=== PATIENT | male | born 1965 | race Caucasian/White ===

== ENCOUNTER 2016-05-24 14:05 | Emergency (ER) | payer MEDICAID ==
[2016-05-24 14:32] VITALS: BP 169/90; PULSE 83; RESP 17; TEMP 98.5
--- NOTE | 2016-05-24 15:07 | ED ---
Lower Extremity Injury HPI - General Chief Complaint: Extremity Injury, Lower Stated Complaint: Fall Time Seen by Provider: 05/24/16 14:41 Source: patient, RN notes reviewed, old records reviewed Mode of arrival: wheelchair Limitations: no limitations - History of Present Illness Initial Comments: Patient is a 51-year-old male with chief complaint of left knee pain after falling on the ice. Patient reports that he's had multiple left knee surgeries including arthroscopic surgeries and a total exhortatory surgery to his knee. Patient reports that after he fell he is noticed increased swelling. He reports that he's had chronic numbness over his knee and makes that good as his pain is somewhat diminished however he does have a poor perception of the exact location of pain. Patient reports that he has previously seen Dr. Chavez the orthopedic physician however he is unable to see him at this time. Patient reports no hip or ankle pain. He reports decreased range of motion irritation over the knee. - Related Data Previous Rx's Medication Instructions Recorded HYDROcodone/APAP 10-325MG [[place] 1 tab PO Q6H PRN #15 tab 05/24/16 10-325] Ibuprofen [Motrin] 800 mg PO Q6HR PRN #15 tab 05/24/16 Allergies Allergy/AdvReac Type Severity Reaction Status Date / Time azithromycin [From Zithromax] Allergy Mild Unknown Verified 05/24/16 14:27 Review of Systems ROS Statement: Those systems with pertinent positive or pertinent negative responses have been documented in the HPI. ROS Other: All systems not noted in ROS Statement are negative. Past Medical History Past Medical History: No Reported History History of Any Multi-Drug Resistant Organisms: None Reported Additional Past Surgical History / Comment(s): knee surgery Past Psychological History: No Psychological Hx Reported Smoking Status: Never smoker Past Alcohol Use History: Occasional Past Drug Use History: None Reported General Exam Limitations: no limitations General appearance: alert, in no apparent distress Head exam: Present: atraumatic, normocephalic, normal inspection Eye exam: Present: normal appearance, PERRL, EOMI. Absent: scleral icterus, conjunctival injection, periorbital swelling ENT exam: Present: normal exam, mucous membranes moist Neck exam: Present: normal inspection. Absent: tenderness, meningismus, lymphadenopathy Respiratory exam: Present: normal lung sounds bilaterally. Absent: respiratory distress, wheezes, rales, rhonchi, stridor Cardiovascular Exam: Present: regular rate, normal rhythm, normal heart sounds. Absent: systolic murmur, diastolic murmur, rubs, gallop, clicks GI/Abdominal exam: Present: soft, normal bowel sounds. Absent: distended, tenderness, guarding, rebound, rigid Left Hip exam: Present: normal inspection, full ROM Upper Leg exam: Present: normal inspection, full ROM Knee exam: Present: tenderness, swelling (significant swelling over the knee. Patient reports some tenderness over the lateral aspect of the knee.), effusion. Absent: normal inspection, full ROM, abrasion, laceration, ecchymosis , deformity, crepitus, dislocation Lower Leg exam: Present: normal inspection, full ROM Ankle exam: Present: normal inspection, full ROM Foot/Toe exam: Present: normal inspection, full ROM Neurovascular tendon exam: Present: no vascular compromise Gait: observed and normal Back exam: Present: normal inspection Course Vital Signs 05/24/16 14:27 Temperature 98.5 F Pulse Rate 83 Respiratory 17 Rate Blood Pressure 169/90 O2 Sat by Pulse 99 Oximetry Procedures - Orthopedic Splinting/Casting Injury #1 Side: left Lower Extremity Injury Location: knee Lower Extremity Immobilizer: knee immobilizer Other Orthopedic Equipment: crutches Medical Decision Making - Medical Decision Making Patient is a 51 year old male with left knee pain after falling on the ice. PAtietn has significant swelling. Patient xray shows tibial platue fracture and femoral condyle fracture. Patient reports that this finding is not new. Given patients significant swelling and Xray results patiient placed in knee immobilizer and advised to follow up with orthopedics as soon as possible. Patient advised to be non weight bearing. Patient advised to take motrin, and pain medication as prescribed. Patient understands treatment plan and will comply. - Radiology Data There is evidence of a lateral tibial plateau fracture without depression. There is a suspected femoral condyle or fracture. Disposition Clinical Impression: Closed fracture of lateral portion of left tibial plateau, Femoral condyle fracture Disposition: HOME SELF-CARE Instructions: Leg Fracture (ED) Additional Instructions: Patient advised to remain in splint as much as possible. Only take off to change into sweatpants. Patient advised to bear no weight over the leg. Only use crutches to ambulate. Return to the EC if any alarming signs or symptoms occur. Follow-up with orthopedic physician tomorrow. Prescriptions: HYDROcodone/APAP 10-325MG [[place] 10-325] 1 tab PO Q6H PRN #15 tab PRN Reason: Pain Ibuprofen [Motrin] 800 mg PO Q6HR PRN #15 tab PRN Reason: Pain Referrals: Tanner Coats DO [Primary Care Provider] - 1-2 days Tanner Harper DO [Doctor of Osteopathic Medicine] - 1-2 days Time of Disposition: 15:42
--- NOTE | 2016-05-24 15:19 | XR ---
EXAMINATION TYPE: XR knee complete LT DATE OF EXAM: 05/24/2016 3:10 PM COMPARISON: 11/29/2015 HISTORY: Fall on ice TECHNIQUE: 3 views left knee FINDINGS: There is a nondisplaced fracture within the distal femoral condyle. This extends towards th e midline. A subtle nondisplaced lateral tibial plateau fracture also appears to be present. This wou ld communicate with the articular surface. CT may be useful for closer evaluation. There is a large j oint effusion present. IMPRESSION: 1. Lateral tibial plateau fracture without depression. 2. Suspected femoral condylar fracture.
== END 2016-05-24 15:59 | disposition home or self-care (01) ==
LOC: EC 14:05
DX: S82.142A Displaced bicondylar fracture of left tibia, initial encounter for closed fracture (principal); S72.412A Displaced unspecified condyle fracture of lower end of left femur, initial encounter for closed fracture; W00.0XXA Fall on same level due to ice and snow, initial encounter; Z88.1 Allergy status to other antibiotic agents
CPT/HCPCS: 73562; 99284; L1830

== ENCOUNTER → 2016-06-01 | Outpatient (CLI) | payer MEDICAID ==
--- NOTE | 2016-06-01 10:14 | MR ---
EXAMINATION TYPE: MR knee LT wo con DATE OF EXAM: 06/01/2016 8:12 AM COMPARISON: December 15, 2015 HISTORY: closed fx of lt tibial plateau TECHNIQUE: Multiplanar, multisequence imaging of the left knee is performed without IV contrast. FINDINGS: MEDIAL MENISCUS: Persistent tear posterior horn medial meniscus. Partial meniscectomy change not excl uded. LATERAL MENISCUS: Obliquely oriented tear posterior horn medial meniscus. CRUCIATE LIGAMENTS: Complete tear of the ACL is again noted nonacute in nature. PCL is intact. COLLATERAL LIGAMENTS: Limited evaluation of the collateral ligaments given patient motion and resulta nt artifact. EXTENSOR MECHANISM: Visualized quadriceps and patellar tendons are intact. EFFUSION: There is evidence of-like bone hemarthrosis. POPLITEAL CYST: No popliteal/macias cyst. TRICOMPARTMENT SPACES: Mild tricompartment degenerative space narrowing is identified. BONE MARROW SIGNAL: Diffuse abnormal signal involving the distal left femoral condyles lateral greate r than medial. Comminuted fracture involving the distal femoral condyle with intra-articular extensio n. Minimal displacement noted. Chronic subchondral impaction fracture lateral compartment tibial plat eau appears improved relative to prior examination. OTHER: No additional significant abnormality is appreciated. IMPRESSION: 1. Comminuted fractures involving the distal femoral condyles with intra-articular extension and mini mal displacement. 2. Associated hemarthrosis. 3. No evidence for acute tibial plateau fracture. Chronic subchondral impaction injury lateral compar tment tibial plateau. 4. Chronic complete rupture of the ACL. 5. Meniscal tears as discussed.
== END | disposition home or self-care (01) ==
LOC: RADMRIMAIN 07:04
PROVIDERS: ATTEND Family Medicine
DX: S72.142A Displaced intertrochanteric fracture of left femur, initial encounter for closed fracture (principal); S83.232A Complex tear of medial meniscus, current injury, left knee, initial encounter; S83.512A Sprain of anterior cruciate ligament of left knee, initial encounter

== ENCOUNTER → 2018-08-03 | Outpatient (CLI) | payer MEDICAID ==
[2018-08-06 11:58] LABS: Avocado Class CLASS 0; Banana IgE Class CLASS 0; Beef IgE <0.35 kU/L (<0.35); Beef IgE Class CLASS 0; Blueberry IgE <0.35 kU/L (<0.35); Blueberry IgE Class CLASS 0; Chicken IgE Class CLASS 0; Cow's Milk IgE Class CLASS 0; Egg White IgE <0.35 kU/L (<0.35); Hazelnut IgE <0.35 kU/L (<0.35); Hazelnut IgE Class CLASS 0; Kiwi IgE <0.35 kU/L (<0.35); Latex IgE Class CLASS 0; Peanut IgE <0.35 kU/L (<0.35); Pork IgE Class CLASS 0; Potato IgE <0.35 kU/L (<0.35); Potato IgE Class CLASS 0; Soybean IgE <0.35 kU/L (<0.35); Yeast Bakers/Brew IgE <0.35 kU/L (<0.35)
== END | disposition home or self-care (01) ==
LOC: LABWHC1 09:27
PROVIDERS: ATTEND Otolaryngology
DX: L50.0 Allergic urticaria (principal); L30.9 Dermatitis, unspecified
CPT/HCPCS: 36415; 86001; 86003

== ENCOUNTER → 2018-09-06 | Outpatient (CLI) | payer MEDICAID ==
[~2018-09-06] MED LIST: REGADENOSON 0.4 MG/5 ML SYRINGE IV ONE
--- NOTE | 2018-09-06 10:31 | NM ---
EXAMINATION TYPE: NM stress lexiscan cardiolite DATE OF EXAM: 09/06/2018 COMPARISON: 01/14/2014 HISTORY: Chest pain TECHNIQUE: After the intravenous administration of 9.8 mCi Tc 99m Sestamibi - Cardiolite resting SPE CT images acquired 45 minutes post injection. The patient received 0.4mg Lexiscan, 25.7 mCi Tc 99m Sestamibi - Stress images obtained [address] injection FINDINGS: Review of stress and rest SPECT images demonstrates small focal area of stress-induced ischemia invol ving the anteroapical myocardium. Gated analysis shows normal wall motion with an estimated left pedro pablo tricular ejection fraction of 60 %. IMPRESSION: 1. Findings suspicious for small area of stress-induced reversible ischemia anteroapical myocardium.. A [place] level critical message alert has been initiated for Tanner Coats DO via the [employer] Critical Results System on 09/06/2018 10:29 AM. This message alert has been sent to Tanner parada DO via the preferences provided by the clinician for the receipt of Radiology Critical Findings . Message ID [id number].
--- NOTE | 2018-09-07 14:06 | EST ---
EXERCISE STRESS DATE OF SERVICE: 09/06/2018 AGE: 53 SEX: Male HT: 70" WT: 284 pounds PROTOCOL: Lexiscan Cardiolite STAGE: DURATION OF EXERCISE: HEART RATE REST: 61 BLOOD PRESSURE REST: 140/82 MAXIMUM HEART RATE ACHIEVED: 81 MAXIMUM BLOOD PRESSURE: 147/81 85% MPHR: 100% MPHR: METS: INDICATIONS: Chest pain. CLINICAL INFORMATION: A Lexiscan nuclear study was performed. Peak heart rate of 81 was achieved. Maximum blood pressure of 147/81 mmHg was noted. Resting EKG shows normal sinus rhythm with normal MA interval and QRS duration and normal ST-T waves. No ST-segment depression suggestive of ischemia was noted during Lexiscan injection. The results of the nuclear study will be reported by the radiologist. NATALIA / SUNDEEP: [id number] /
== END | disposition home or self-care (01) ==
LOC: RADNMMAIN 07:45
PROVIDERS: ATTEND Family Medicine
DX: R07.89 Other chest pain (principal)
CPT/HCPCS: 93017; 78452; A9500; J2785

== ENCOUNTER → 2018-09-25 | Outpatient (CLI) | payer MEDICAID ==
[~2018-09-25] MED LIST changes: +ATROPINE SULFATE 0.1 MG/ML 10ML SYRINGE ONE; +DOBUTamine DRIP for NUC MED 500 MG in DEXTROSE/WATER 1 250ML.BAG IV ONE; +METOPROLOL TARTRATE 5 MG/5 ML VIAL IVP ONE; -REGADENOSON 0.4 MG/5 ML SYRINGE IV ONE
--- NOTE | 2018-09-25 11:44 | ECHOS ---
STRESS ECHOCARDIOGRAM DATE OF SERVICE: 09/25/2018 INDICATIONS: Chest pain. MEDICATIONS: Claritin, Bumex. BASELINE HEART RATE: 62 BASELINE BLOOD PRESSURE: 156/84 MAXIMUM HEART RATE: 147 MAXIMUM BLOOD PRESSURE: 187/58 85% MPHR: 143 100% MPHR: 168 METS: MAXIMUM STAGE REACHED: TOTAL EXERCISE TIME: CLINICAL INFORMATION: STRESS DATA: Pretesting physical examination showed a heart rate of 62, pressure is 156/84 mmHg. Baseline EKG showed sinus mechanism. Dobutamine infusion at a dose of 10 mcg/kg per minute was initiated and increased to 40 mcg/kg per minute per protocol. Max heart rate was 147 beats per minute which is about 90% of maximum predicted heart rate. Maximum blood pressure was 187/58 mmHg. Clinically the patient did not have any symptoms of chest pain or discomfort and the EKG did not show any significant ST or T- wave abnormalities concerning for ischemia. ECHOCARDIOGRAM IMAGES: On echocardiogram images from parasternal long axis view, parasternal short axis view, apical 4 chamber and apical 2 chamber view were obtained as the baseline images, at low dose dobutamine infusion, at peak heart rate, as well as on recovery. The echocardiogram images did show good augmentation in the left ventricular systolic function without any obvious wall motion abnormalities concerning for ischemia. CONCLUSION: 1. Normal EKG in response to dobutamine. 2. Normal echocardiogram in response to dobutamine. 3. Essentially normal dobutamine stress echocardiogram for the patient. MMODL / IJN: [id number] /
== END | disposition home or self-care (01) ==
LOC: RADNMMAIN 09:31
PROVIDERS: ATTEND Internal Medicine Cardiovascular Disease
DX: R07.2 Precordial pain (principal); R94.30 Abnormal result of cardiovascular function study, unspecified
CPT/HCPCS: 93351; J1250; J0461; Q9950

== ENCOUNTER → 2018-11-06 | Outpatient (CLI) | payer MEDICAID ==
--- NOTE | 2018-11-07 11:29 | ECHOF ---
Referral Reason:R07.2 Precordial pain,R94.30 Abn Cardiac Function MEASUREMENTS -------- HEIGHT: 180.3 cm WEIGHT: 127.0 kg BP: RVIDd: 2.7 cm (< 3.3) IVSd: 1.4 cm (0.6 - 1.1) LVIDd: 4.1 cm (3.9 - 5.3) LVPWd: 1.5 cm (0.6 - 1.1) IVSs: 1.9 cm LVIDs: 2.1 cm LVPWs: 1.6 cm Ao Diam: 3.1 cm (2.0 - 3.7) AV Cusp: 2.2 cm (1.5 - 2.6) LA Diam: 3.2 cm (2.7 - 3.8) MV EXCURSION: 17.007 mm (> 18.000) MV EF SLOPE: 72 mm/s (70 - 150) EPSS: 0.5 cm MV E Cliff: 0.64 m/s MV DecT: 215 ms MV A Cliff: 0.71 m/s MV E/A Ratio: 0.91 RAP: 5.00 mmHg RVSP: 11.51 mmHg FINDINGS -------- Sinus rhythm. This was a technically difficult study with suboptimal views. The left ventricular size is normal. There is moderate concentric left ventricular hypertrophy. O verall left ventricular systolic function is normal with, an EF between 55 - 60 %. The right ventricle is normal in size. The left atrial size is normal. The right atrial size is normal. 5.0mg of Lumason was utilized for enhancement of images Interatrial and interventricular septum intact. The aortic valve is trileaflet and appears structurally normal. The mitral valve is normal. There is trace mitral regurgitation. The tricuspid valve appears structurally normal. Trace tricuspid regurgitation present. Right pedro pablo tricular systolic pressure is normal at < 35 mmHg. There is no pulmonic regurgitation present. The aortic root size is normal. IVC Not well visulized. There is no pericardial effusion. CONCLUSIONS -------- 1. Sinus rhythm. 2. This was a technically difficult study with suboptimal views. 3. The left ventricular size is normal. 4. There is moderate concentric left ventricular hypertrophy. 5. Overall left ventricular systolic function is normal with, an EF between 55 - 60 %. 6. The right ventricle is normal in size. 7. The left atrial size is normal. 8. The right atrial size is normal. 9. 5.0mg of Lumason was utilized for enhancement of images 10. Interatrial and interventricular septum intact. 11. The aortic valve is trileaflet and appears structurally normal. 12. The mitral valve is normal. 13. There is trace mitral regurgitation. 14. The tricuspid valve appears structurally normal. 15. Trace tricuspid regurgitation present. 16. Right ventricular systolic pressure is normal at < 35 mmHg. 17. There is no pulmonic regurgitation present. 18. The aortic root size is normal. 19. IVC Not well visulized. 20. There is no pericardial effusion. SOFTWARE LICENSING ANALYST: Rubi Jacobsen RDCS
== END | disposition home or self-care (01) ==
LOC: RADECHMAIN 11:15
PROVIDERS: ATTEND Internal Medicine Cardiovascular Disease
DX: I51.7 Cardiomegaly (principal)
CPT/HCPCS: 93306; Q9950

== ENCOUNTER → 2019-01-11 | Outpatient (CLI) | payer MEDICAID ==
--- NOTE | 2019-01-11 15:48 | XR ---
EXAMINATION TYPE: XR foot complete RT DATE OF EXAM: 01/11/2019 CLINICAL HISTORY: Great toe pain after kicking bed TECHNIQUE: Frontal, lateral, and oblique images of the right foot are obtained. COMPARISON: 09/18/2012 FINDINGS: There is no acute fracture/dislocation evident in the right foot. The joint spaces in the right foot appear within normal limits. Plantar calcaneal heel spur is present. The overlying soft tissue appears unremarkable. IMPRESSION: There is no acute fracture or dislocation in the right foot.
== END | disposition home or self-care (01) ==
LOC: RADXRYALE 15:31
PROVIDERS: ATTEND Family Medicine
DX: M25.571 Pain in right ankle and joints of right foot (principal)

== ENCOUNTER → 2019-05-30 | Outpatient (CLI) | payer MEDICAID ==
--- NOTE | 2019-05-30 11:25 | XR ---
EXAMINATION TYPE: XR chest 2V DATE OF EXAM: 05/30/2019 COMPARISON: 06/01/2015 HISTORY: Cough. Bronchitis for one week. TECHNIQUE: Frontal and lateral views of the chest are obtained. FINDINGS: There is no focal air space opacity, pleural effusion, or pneumothorax seen. Peribronchial cuffing is seen at the lung bases. The cardiac silhouette size is stable. The osseous structures a re intact. IMPRESSION: Peribronchial cuffing compatible with this patient's current bronchitis. No focal consol idation to suggest pneumonia.
== END | disposition home or self-care (01) ==
LOC: RADXRYALE 10:58
PROVIDERS: ATTEND Physician Assistant Medical
DX: R91.8 Other nonspecific abnormal finding of lung field (principal); R05 Cough
CPT/HCPCS: 71046

== ENCOUNTER → 2019-08-29 | Outpatient (CLI) | payer MEDICAID ==
--- NOTE | 2019-08-29 19:57 | CT ---
EXAMINATION TYPE: CT chest wo con DATE OF EXAM: 08/29/2019 COMPARISON: Chest x-ray dated 06/12/2019 HISTORY: Cough x 5 months and shortness of breath CT DLP: 664 mGycm. Automated Exposure Control for Dose Reduction was Utilized. TECHNIQUE: CT scan of the thorax is performed without IV contrast. FINDINGS: LUNGS: Azygos fissure is incidentally noted. There are scattered sub-3 mm pulmonary nodules. This is seen in the left lower lobe on series 4 image 40. Nodules are marked on lung algorithm series 4. No f ocal consolidation or pulmonary masses seen. Calcified granuloma along the medial aspect of the left lung base on series 4 image 58. There is no pleural effusion or pneumothorax seen. The tracheobronc hial tree is patent. MEDIASTINUM: Lack of IV contrast is noted to limit evaluation for mediastinal and especially hilar ad enopathy. There are no definitive greater than 1 cm hilar or mediastinal lymph nodes. No cardiomega ly or pericardial effusion is seen. Main pulmonary artery is upper limits of normal size measuring 3. 0 cm. Correlate for pulmonary arterial hypertension. OTHER: No fluid attenuated 1.2 cm hepatic cyst is marked on series 3 image 56 on the right hepatic l obe. Mild degree background hepatic steatosis. Liver is not completely visualized. Mild multilevel de generative change of the spine. IMPRESSION: 1. Few scattered sub-4 mm pulmonary nodules. Follow-up CT thorax is recommended in 12 months to ensur e stability. No focal consolidation, pleural effusion or pneumothorax. 2. Upper limits of normal size of the main pulmonary artery, which may clinically correlate with pulm onary arterial hypertension.
== END | disposition home or self-care (01) ==
LOC: RADCTMAIN 15:49
PROVIDERS: ATTEND Family Medicine
DX: R91.8 Other nonspecific abnormal finding of lung field (principal)
CPT/HCPCS: 71250

== ENCOUNTER → 2019-10-18 | Outpatient (CLI) | payer MEDICAID | END | disposition home or self-care (01) | LOC: LABWHC1 10:45 | PROVIDERS: ATTEND Internal Medicine Sleep Medicine | DX: Z11.59 Encounter for screening for other viral diseases (principal) ==

== ENCOUNTER → 2019-10-22 | Outpatient (CLI) | payer MEDICAID ==
[2019-10-22 09:37] LABS: Basophils # (A) 0.1 k/uL (0-0.2); Basophils % (A) 2 %; Eosinophils # (A) 0.6 k/uL (0-0.7); Eosinophils % (A) 9 %; Lymphocytes # (A) 1.3 k/uL (1.0-4.8); Lymphocytes % (A) 18 %; MCH 29.7 pg (25.0-35.0); MCHC 33.4 g/dL (31.0-37.0); Mean Platelet Volume 7.2; Monocytes # (A) 0.4 k/uL (0-1.0); Monocytes % (A) 6 %; Neutrophils # (A) 4.3 k/uL (1.3-7.7); Neutrophils % (A) 63 %; Platelet Count 248 k/uL (150-450); RBC 5.05 m/uL (4.30-5.90); RDW 13.1 % (11.5-15.5); WBC 6.9 k/uL (3.8-10.6)
[2019-10-23 14:07] LABS: Alt. alternata IgE Class CLASS 0; Alternaria alternata IgE <0.10 kU/L (<0.10); Asperg. fumagatus IgE <0.10 kU/L (<0.10); Asperg. fumagatus IgE Class CLASS 0; Candida albicans IgE Class CLASS 0; Clad herbarum IgE <0.10 kU/L (<0.10); Clad herbarum IgE Class CLASS 0; Latex IgE Class CLASS 0; Mucor racemosus IgE <0.10 kU/L (<0.10); Mucor racemosus IgE Class CLASS 0; Penicillium chrysogenum IgE <0.10 kU/L (<0.10); Penicillium chrysogenum IgE Cl CLASS 0
[2019-10-24 11:21] LABS: Alpha 1 Anti-Trypsin 152 mg/dL (90 - 200)
[2019-10-29 21:06] LABS: Alternaria Alternata IgG 4.7 mcg/mL (< 13.6); Aspergillus fumigatus IgG Not detected (Not detected); Aureobasidium pullulans IgG 3.7 mcg/mL (< 13.6); Cladosporium herbarium IgG 11.7 mcg/mL (< 14.7); Phoma ssp. IgG 5.1 mcg/mL (< 6.6); Saccaharomospora viridis Not detected (Not detected); Saccaharopoly. rectivirgula Not detected (Not detected)
== END | disposition home or self-care (01) ==
LOC: CPPFTMAIN 07:16
PROVIDERS: ATTEND Internal Medicine Sleep Medicine
DX: J45.909 Unspecified asthma, uncomplicated (principal)
CPT/HCPCS: 36415; 82103; 82104; 85025; 86001; 86003; 86606; 86609; 94060; 94726; 94729

== ENCOUNTER 2020-01-22 13:10 | Day surgery (SDC) | payer MEDICAID ==
[2020-01-21 12:26] VITALS: BMI 39.3
[~2020-01-22 13:10] MED LIST changes: -ATROPINE SULFATE 0.1 MG/ML 10ML SYRINGE ONE; -DOBUTamine DRIP for NUC MED 500 MG in DEXTROSE/WATER 1 250ML.BAG IV ONE; +LIDOCAINE 1% (10MG/ML) FOR IV START INTRADERMA PRN; -METOPROLOL TARTRATE 5 MG/5 ML VIAL IVP ONE
[2020-01-22 13:42] VITALS: RESP 16; TEMP 97.3
[2020-01-22] MEDS: LACTATED RINGERS 1,000 ML IV SCH ×2 (13:49→14:45)
[2020-01-22] MEDS ORDERED: LIDOCAINE 2% INJ 20 MG/ML INTRATRACH ONE (14:55)
[2020-01-22 15:40] VITALS: BP 140/84; PULSE 74
--- NOTE | 2020-01-22 15:46 | P.PCN ---
Date of Procedure: 01/22/20 Preoperative Diagnosis: Chronic recurrent bronchitis, chronic cough, shortness of breath, rule out infectious etiology Postoperative Diagnosis: As above Procedure(s) Performed: Bronchoscopy, bronchoalveolar lavage, bronchial biopsy left-sided Anesthesia: MAC Surgeon: rPo [place] Condition: stable Disposition: same day Indications for Procedure: As above Operative Findings: As below Description of Procedure: Patient prepared and draped in a usual fashion fiber thick bronchoscope was passed through the right knee disease, note is made of inferior turbinate hypertrophy involving mucosa tip of the Symone was has eventually choose a laryngeal area the vocal cords were inspected they were normal structure and function tip of the scope was passed into the trachea note is made of the diffuse erythematous was present more so on the left side compared right side, throughout the procedure patient was constantly coughing, scope was taken on the right side right upper lobe middle lobe and right lower lobe was inspected followed by inspection on the left side involving left upper and lower lobe along with subsegment slight more right heme and edema noted on the left side compared to right side BAL was performed from the left lobe and right lower lobe followed by multiple bronchial biopsy at left subcarinal level they were done randomly patient tolerated procedure well no complication noted
== END 2020-01-22 15:50 | disposition home or self-care (01) ==
LOC: ORWHC2ENDO 13:10
PROVIDERS: ATTEND Internal Medicine Sleep Medicine
DX: J42 Unspecified chronic bronchitis (principal); J81.1 Chronic pulmonary edema; J34.3 Hypertrophy of nasal turbinates; J45.50 Severe persistent asthma, uncomplicated; I10 Essential (primary) hypertension; E66.01 Morbid (severe) obesity due to excess calories; R91.1 Solitary pulmonary nodule; G47.30 Sleep apnea, unspecified; K21.9 Gastro-esophageal reflux disease without esophagitis; Z88.1 Allergy status to other antibiotic agents; Z68.39 Body mass index [BMI] 39.0-39.9, adult; Z79.51 Long term (current) use of inhaled steroids; Z79.899 Other long term (current) drug therapy; Z79.1 Long term (current) use of non-steroidal anti-inflammatories (NSAID)
CPT/HCPCS: 31625; 31624; 88108; 88305; 87252; 87070; 87205; 87116; 87102; 87206; J2001; 87496; 87498; 87502; 87529; 87634; 87798

== ENCOUNTER → 2020-07-22 | Outpatient (CLI) | payer MEDICAID ==
--- NOTE | 2020-07-22 10:14 | CT ---
EXAMINATION TYPE: CT facial bones wo con DATE OF EXAM: 07/22/2020 COMPARISON: None HISTORY: Acute recurrent sinusitis CT DLP: [address] of the paranasal sinuses was performed in the axial and coronal planes. Bone and soft tissue settings are submitted. The paranasal sinuses demonstrate normal aeration and development. Moderate mucosal thickening involving the ethmoid air cells. Mild mucosal thickening along the maxill jackie sinuses. Remaining sinuses are well-aerated. Bilateral ostiomeatal unit obstruction. The nasal septum is midline. No bony destructive changes are seen within the field of view. IMPRESSION: Chronic sinusitis as noted. Bilateral ostiomeatal unit obstruction.
== END | disposition home or self-care (01) ==
LOC: RADCTMAIN 09:26
PROVIDERS: ATTEND Family Medicine
DX: J32.9 Chronic sinusitis, unspecified (principal)
CPT/HCPCS: 70486

== ENCOUNTER → 2020-11-23 | Outpatient (CLI) | payer MEDICAID ==
--- NOTE | 2020-11-23 16:20 | XR ---
EXAMINATION TYPE: XR toes RT DATE OF EXAM: 11/23/2020 COMPARISON: NONE HISTORY: 55-year-old male and [id number], right toe pain, injury 3 weeks ago. TECHNIQUE: 2 views coned-down right great toe FINDINGS: There is mild degenerative spurring at the first MTP joint progress from 2019. Minimal degenerative s purring at the first IP joint also progressed from prior exam. There is a medial sided soft tissue sw elling noted. No acute fracture, subluxation, or dislocation. 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 Medial sided soft tissue swel ling. No acute osseous abnormality seen.
== END | disposition home or self-care (01) ==
LOC: RADXRYALE 15:12
PROVIDERS: ATTEND Physician Assistant Medical
DX: S99.921A Unspecified injury of right foot, initial encounter (principal); M19.071 Primary osteoarthritis, right ankle and foot

== ENCOUNTER 2021-09-29 07:54 | Day surgery (SDC) | payer MEDICAID ==
[2021-09-28 08:36] VITALS: BMI 40.1
[~2021-09-29 07:54] MED LIST changes: +DEXAMETHASONE SOD PHOSPHATE 4 MG/ML 1 ML VIAL IV ONE; +DEXAMETHASONE SOD PHOSPHATE 4 MG/ML 1 ML VIAL IV PRN; +FAMOTIDINE 20 MG/2 ML VIAL IV PRN; +LACTATED RINGERS 1,000 ML IV SCH; +MIDAZOLAM 2 MG/2 ML VIAL IV PRN; +ONDANSETRON 4 MG/2 ML VIAL IVP ONE; +ONDANSETRON 4 MG/2 ML VIAL IVP PRN; +ceFAZolin 3 GM in SODIUM CHLORIDE 0.9% 100 ML IVPB PRN
[2021-09-29] MEDS: OXYMETAZOLINE 0.05% NASL SPRAY 1 SPRAY BOTTLE EA NOSTRIL PRN ×5 (08:25→08:45)
[2021-09-29 08:57] LABS: Glucose,Whole Blood 109 mg/dL (75-99)
[2021-09-29] MEDS ORDERED: SUCCINYLCHOLINE CHLORIDE 100 MG/5 ML SYR IV ONE (09:51)
[2021-09-29] MEDS ORDERED: fentaNYL (PF) 50 MCG/ML 2 ML AMP ONE (09:51)
[2021-09-29] MEDS ORDERED: MIDAZOLAM 2 MG/2 ML VIAL ONE (09:51)
[2021-09-29] MEDS ORDERED: PROPOFOL 10 MG/ML 20 ML VIAL IV ONE (09:51)
[2021-09-29] MEDS ORDERED: LIDOCAINE 2% INJ 20 MG/ML (2 ML VIAL) ONE (09:51)
[2021-09-29] MEDS ORDERED: GLYCOPYRROLATE 0.2 MG/ML 2 ML VIAL ONE (09:51)
[2021-09-29] MEDS ORDERED: KETAMINE 10 MG/ML 20 ML VIAL ONE (09:51)
[2021-09-29] MEDS ORDERED: LIDOCAINE 1%-EPI 1:100,000 20 ML VIAL SUBMUCOSAL ONE ×3 (09:54→10:11)
[2021-09-29] MEDS ORDERED: BACITRACIN ZINC 500 UNIT/GM OINT 28.4 GM TUBE TOPICAL ONE ×2 (09:55→10:38)
--- NOTE | 2021-09-29 11:15 | P.OP ---
Date of Procedure: 09/29/21 Preoperative Diagnosis: Deviated nasal septum Inferior turbinate hypertrophy Chronic sinusitis Left nasal polyp Postoperative Diagnosis: Same Procedure(s) Performed: Septoplasty Outfracture and submucous resection of the inferior turbinates Bilateral endoscopic sinus surgery including bilateral maxillary antrostomy with removal of tissue from maxillary sinuses, bilateral anterior and posterior ethmoidectomy, left nasal polypectomy Anesthesia: SHANAA Surgeon: Jose Grajeda Estimated Blood Loss (ml): 10 Pathology: other (Nasal septal bone and cartilage and sinus contents) Condition: stable Disposition: PACU Indications for Procedure: This is a 56-year-old white male whose had difficulties with chronic nasal airway obstruction and congestion as well as recurrent and chronic sinusitis. He is also noted to have more so left-sided nasal airway obstruction with a large polyp in the left nasal cavity Operative Findings: Bilateral nasal septal deviation with inferior turbinate hypertrophy bilaterally also. Large nasal polyp on the left emanating from the middle meatus although somewhat smaller than previous due to his preoperative steroid use, mucosal thickening and small polyps in the maxillary sinuses bilaterally as well as the anterior and posterior ethmoid sinuses. There was also a small polyp on the medial aspect of right middle turbinate Description of Procedure: The patient was brought into the operative suite and placed in a supine position. The patient underwent induction of general anesthesia with oral endotracheal intubation without difficulty. The patient was prepped and draped in the usual aseptic fashion with the orbits in the operating field for monitoring to the case and the computed tomography scan was on the computer screen for review throughout the case. 1% lidocaine with 1 :100,000 epinephrine was infused submucosally into both sides of the nasal septum as well as the lateral nasal wall and anterior tips of the middle turbinates. While this was taking vasoconstrictive effect the inferior turbinates were infractured with Cherry elevator and partial submucous resection of the inferior turbinates was performed with a portion of the submucosal soft tissue and the inferior turbinate bone removed with Coblation device. The inferior turbinates were then outfractured with the Cherry elevator. A left hemitransfixion incision was then made with the mucoperichondrial and mucoperiosteal flap on the left elevated. The bony cartilaginous junction was disarticulated and the mucoperiosteal flap on the right was elevated. Bony nasal septal deformities were removed with Ade forceps and an inferior cartilaginous strip was removed leaving a full 1.5 cm caudal strut. Checking intranasally this corrected the nasoseptal deformities and the hemitransfixion incision was closed with a running 4-0 chromic suture. Full 0 endoscopic examination is performed bilaterally. Beginning on the left, the large polyp in the lower middle meatus on the left was removed with microdebrider and then the middle turbinate was medialized. The maxillary ostium was located with a ballpoint probe and an infundibulotomy was performed followed by uncinectomy. The maxillary antrostomy was enlarged at the expense of the anterior and posterior fontanelle taking care anteriorly not to injure the lacrimal bone. The maxillary sinus was evaluated with 30 and 70 endoscope .[Abnormal appearing tissue was removed from the maxillary sinus]. Anterior and posterior ethmoidectomy were then performed from anterior to posterior to the level of the skull base. The roof of the anterior ethmoid air cells were then cleaned from posterior to anterior using up-biting Blakesley forceps. Attention was then turned to the right where the procedures were followed as they were on the left including medialization middle turbinate infundibulotomy uncinectomy anterior posterior ethmoidectomy and maxillary antrostomy with removal of tissue from the maxillary sinus [Nasopore nasal dressing was placed in the middle meatus bilaterally under direct visualization]. Bilateral Syed airway splints coated with bacitracin ointment were placed and sutured transseptally with a 4-0 nylon suture. The patient was suctioned in oral gastric fashion and was allowed to emerge from general anesthesia having tolerated procedure well and was extubated in the operating suite and transferred to the postoperative recovery area in satisfactory condition.
[2021-09-29 11:31] VITALS: TEMP 97.6
[2021-09-29] MEDS: HYDROmorphone 0.5 MG/0.5 ML SYRINGE IVP PRN ×3 (11:37→11:59)
[2021-09-29] MEDS ORDERED: hydrALAZINE HCL 20 MG/ML 1 ML VIAL IVP ONE (11:54)
[2021-09-29 12:24] VITALS: RESP 16
[2021-09-29 13:26] VITALS: BP 143/84; PULSE 68
== END 2021-09-29 13:31 | disposition home or self-care (01) ==
LOC: OR 07:54
PROVIDERS: ATTEND Otolaryngology
DX: J34.2 Deviated nasal septum (principal); J34.3 Hypertrophy of nasal turbinates; J32.9 Chronic sinusitis, unspecified; J33.9 Nasal polyp, unspecified; K21.9 Gastro-esophageal reflux disease without esophagitis; Z83.3 Family history of diabetes mellitus; Z83.52 Family history of ear disorders; Z98.890 Other specified postprocedural states; Z79.52 Long term (current) use of systemic steroids; Z79.899 Other long term (current) drug therapy; Z91.09 Other allergy status, other than to drugs and biological substances; Z88.1 Allergy status to other antibiotic agents; Z91.018 Allergy to other foods; E66.01 Morbid (severe) obesity due to excess calories; Z68.39 Body mass index [BMI] 39.0-39.9, adult
CPT/HCPCS: 88305; 84132; 88300; 30520; 31267; 31255; J2250; J0360; J1100; J0690; J2405; J3010; J0330; J2704; J1170; J2001